=== PATIENT | male | born 1990 | race African-American/Black ===

== ENCOUNTER 2018-08-22 21:42 | Inpatient (IN) | payer MEDICAID ==
[~2018-08-22] VITALS: Ht 188 cm; Wt 86.1 kg
[~2018-08-22 21:42] MED LIST: ARIP2 PO; CARI250T PO; MORP10CA11; OXYC10TA58 PO; VICOT PO
[2018-08-22] MEDS ORDERED: QUEtiapine FUMARATE 100 MG TABLET PO PRN (22:45)
[2018-08-23 00:20] VITALS: BP 128/66
[2018-08-23] MEDS: LORazepam 2 MG TABLET PO PRN (00:56)
[2018-08-23] MEDS: ZOLPIDEM TARTRATE 10 MG TABLET PO PRN ×2 (00:56→20:58)
[2018-08-23 08:04] VITALS: BP 123/79
[2018-08-23 08:10] LABS: BASOPHILS % (AUTO) 1.6 % (0.0-2.0); EOSINOPHILS % (AUTO) 1.7 % (1.0-6.0); HEMATOCRIT 43.3 % (41-53); HEMOGLOBIN 14.1 g/dL (13.5-17.5); LYMPHOCYTES # (AUTO) 1.2 K/uL (1.0-4.8); LYMPHOCYTES % (AUTO) 26.1 % (22.0-44.0); MEAN CORPUSCULAR HEMOGLOBIN 27.3 pg (26.0-34.0); MEAN CORPUSCULAR HGB CONC 32.5 G/dL (31.0-37.0); MEAN CORPUSCULAR VOLUME 84 fL (80-100); MONOCYTES # (AUTO) 0.9 K/uL (0.1-1.0); MONOCYTES % (AUTO) 20.6 % (2.0-9.0); NEUTROPHILS # (AUTO) 2.3 K/uL (1.8-7.7); PLATELET COUNT (AUTO) 218 K/uL (150-450); RED BLOOD CELL COUNT(AUTO) 5.15 MIL/uL (4.50-5.90); RED CELL DISTRIBUTION WIDTH 13.7 % (11.5-14.5)
[2018-08-23 08:18] LABS: HEMOGLOBIN A1C 6.1 % (4.5-6.2)
[2018-08-23 08:33] LABS: ALANINE AMINOTRANSFERASE 123 U/L (12-78); ALBUMIN 3.5 g/dL (3.4-5.0); ALKALINE PHOSPHATASE 63 U/L (46-116); ANION GAP 7 mmol/L (8-16); ASPARTATE AMINOTRANSFERASE 67 U/L (15-37); BILIRUBIN,TOTAL 0.4 mg/dL (0.1-1.0); CALCIUM, TOTAL 8.9 mg/dL (8.8-10.5); CARBON DIOXIDE 29 mmol/L (22-29); CHLORIDE 103 mmol/L (98-107); CHOL/HDL RATIO 2.3 (4.2-7.3); CHOLESTEROL 147 mg/dL (131-200); CREATININE 0.87 mg/dL (0.60-1.30); FREE T4 (FREE THYROXINE) 1.09 ng/dL (0.76-1.46); GLOMERULAR FILTR. RATE CALC > 60 mL/min (>60); GLUCOSE,RANDOM 102 mg/dL (70-110); HDL CHOLESTEROL 64 mg/dL (40-60); LDL CHOL (CALC.) 70 mg/dL (0-130); POTASSIUM 4.8 mmol/L (3.5-5.1); SODIUM SERUM 139 mmol/L (136-145); THYROID STIMULATING HORMONE 0.21 uIU/mL (0.36-3.74); TOTAL PROTEIN, SERUM 7.8 g/dL (6.4-8.2); TRIGLYCERIDES 63 mg/dL (15-150); UREA NITROGEN, BLOOD 17 mg/dL (7-18)
[2018-08-23] MEDS ORDERED: MAGNESIUM HYDROXIDE SUSPENSION 30 ML UDCUP PO PRN (14:30)
[2018-08-23] MEDS ORDERED: HydrOXYzine PAMOATE 50 MG CAPSULE PO PRN (14:30)
[2018-08-23] MEDS ORDERED: GuaiFENesin/D-METHORPHAN [SUGAR-FREE] 200-20MG/10 ML SYRUP UDCUP PO PRN (14:30)
[2018-08-23] MEDS ORDERED: LOPERAMIDE HCL 2 MG CAPSULE PO PRN (14:30)
[2018-08-23] MEDS ORDERED: PROMETHAZINE HCL 25 MG TABLET PO PRN (14:30)
[2018-08-23] MEDS ORDERED: MAG HYDROX/AL HYDROX/SIMETH ES 30 ML SUSPENSION UDCUP PO PRN (14:30)
[2018-08-23] MEDS ORDERED: TUBERCULIN, PURIFIED PROTEIN DERIVATIVE 5 TU/0.1 ML SYRINGE ID ONE (14:30)
[2018-08-23] MEDS ORDERED: OLANZapine 5 MG RAPDIS TABLET PO PRN (14:30)
[2018-08-23] MEDS: THIAMINE HCL 100 MG TABLET PO SCH (16:00)
[2018-08-23] MEDS: ACAMPROSATE CALCIUM 333 MG DR TABLET PO SCH (16:01)
[2018-08-23] MEDS: GABAPENTIN 300 MG CAPSULE PO SCH ×2 (16:01→20:48)
[2018-08-23 16:03] VITALS: BP 120/68
[2018-08-23] MEDS ORDERED: GABAPENTIN 100 MG CAPSULE PO SCH (21:00)
[2018-08-23] MEDS ORDERED: OLANZapine 5 MG RAPDIS TABLET PO SCH (21:00)
[2018-08-23] MEDS ORDERED: QUEtiapine FUMARATE 100 MG TABLET PO SCH (21:00)
[2018-08-24 06:03] VITALS: BP 124/76
[2018-08-24 08:10] VITALS: BP 119/64
[2018-08-24] MEDS: MULTIVITAMINS WITH MINERALS, THERAPEUTIC TABLET PO SCH (08:31)
[2018-08-24] MEDS: GABAPENTIN 300 MG CAPSULE PO SCH ×4 (08:31→20:33)
[2018-08-24] MEDS: ACAMPROSATE CALCIUM 333 MG DR TABLET PO SCH ×3 (08:32→17:04)
[2018-08-24] MEDS: THIAMINE HCL 100 MG TABLET PO SCH ×2 (08:32→17:04)
[2018-08-24] MEDS: FOLIC ACID 1 MG TABLET PO SCH (08:32)
[2018-08-24] MEDS: DULoxetine HCL 20 MG CAPSULE PO SCH (08:32)
[2018-08-24] MEDS: LORazepam 2 MG TABLET PO PRN (08:42)
[2018-08-24 16:05] VITALS: BP 116/62
[2018-08-24] MEDS: OLANZapine 10 MG RAPDIS TABLET PO SCH (20:33)
[2018-08-25 05:02] VITALS: BP 112/70
[2018-08-25] MEDS: THIAMINE HCL 100 MG TABLET PO SCH ×2 (08:07→16:39)
[2018-08-25] MEDS: GABAPENTIN 300 MG CAPSULE PO SCH ×2 (08:07→12:11)
[2018-08-25] MEDS: DULoxetine HCL 20 MG CAPSULE PO SCH (08:07)
[2018-08-25] MEDS: FOLIC ACID 1 MG TABLET PO SCH (08:07)
[2018-08-25] MEDS: MULTIVITAMINS WITH MINERALS, THERAPEUTIC TABLET PO SCH (08:07)
[2018-08-25] MEDS: ACAMPROSATE CALCIUM 333 MG DR TABLET PO SCH ×3 (08:07→16:39)
[2018-08-25 08:42] VITALS: BP 110/68
[2018-08-25 16:04] VITALS: BP 122/69
[2018-08-25] MEDS: ACETAMINOPHEN 325 MG TABLET PO PRN (16:38)
[2018-08-25] MEDS: GABAPENTIN 400 MG CAPSULE PO SCH ×2 (16:39→20:31)
[2018-08-25] MEDS: OLANZapine 10 MG RAPDIS TABLET PO SCH (20:31)
[2018-08-25] MEDS ORDERED: DIVALPROEX SODIUM 500 MG ER TABLET PO SCH (21:00)
[2018-08-26 01:54] VITALS: BP 102/60
[2018-08-26] MEDS: ACETAMINOPHEN 325 MG TABLET PO PRN (02:02)
[2018-08-26 08:02] VITALS: BP 124/70
[2018-08-26] MEDS: THIAMINE HCL 100 MG TABLET PO SCH (08:23)
[2018-08-26] MEDS: ACAMPROSATE CALCIUM 333 MG DR TABLET PO SCH ×2 (08:23→12:03)
[2018-08-26] MEDS: MULTIVITAMINS WITH MINERALS, THERAPEUTIC TABLET PO SCH (08:23)
[2018-08-26] MEDS: FOLIC ACID 1 MG TABLET PO SCH (08:24)
[2018-08-26] MEDS: GABAPENTIN 400 MG CAPSULE PO SCH ×2 (08:24→12:03)
[2018-08-26] MEDS ORDERED: DULoxetine HCL 30 MG CAPSULE PO SCH (09:00)
[2018-08-26] MEDS ORDERED: OLAN10TA22 PO (13:05)
[2018-08-26] MEDS ORDERED: GABA-533 PO ×2 (13:05→13:22)
[2018-08-26] MEDS ORDERED: ACAM333T7 PO ×2 (13:05→13:22)
[2018-08-26] MEDS ORDERED: DIVA500T52 PO ×2 (13:05→13:22)
[2018-08-26] MEDS ORDERED: DULO30CA2 PO ×2 (13:05→13:22)
[2018-08-26] MEDS ORDERED: OLAN10TA6 PO (13:22)
== END 2018-08-26 14:45 | disposition home or self-care (01) | DRG 750 ==
LOC: B2X 22:46
PROVIDERS: ADMIT Psychiatry & Neurology Psychiatry; ATTEND Psychiatry & Neurology Psychiatry
DX: F25.9 Schizoaffective disorder, unspecified (principal); Z59.0 Homelessness; B19.20 Unspecified viral hepatitis C without hepatic coma; F17.210 Nicotine dependence, cigarettes, uncomplicated; Z65.3 Problems related to other legal circumstances; Z88.2 Allergy status to sulfonamides; Z88.0 Allergy status to penicillin; Z91.19 Patient's noncompliance with other medical treatment and regimen; Z91.5 Personal history of self-harm
CPT/HCPCS: 83036; 84439; 84443